=== PATIENT | female | born 1960 | race Caucasian/White ===

== ENCOUNTER 2023-01-07 17:43 | Observation (INO) | payer SELFPAY ==
[2023-01-07] MEDS ORDERED: Morphine 2 MG/ML SYRINGE IVPUSH ONE (17:45)
[2023-01-07] MEDS ORDERED: Sodium Chloride 0.9% 10 ML Syringe FLUSH PRN (21:16)
[2023-01-07] MEDS ORDERED: Sodium Chloride 0.9% 2.5 ML Syringe FLUSH PRN (21:16)
[2023-01-07 22:33] LABS: BLOOD UREA NITROGEN,BUN 5 mg/dL (7.0-18.0); CARBON DIOXIDE,CO2 31.9 mmol/L (21.0-32.0); CHLORIDE,CL 98 mmol/L (98-107); GLUCOSE RANDOM 117 mg/dL (74-106); POTASSIUM,K 3.6 mmol/L (3.5-5.1); SODIUM,NA 139 mmol/L (136-145)
[2023-01-07 22:34] LABS: ESTIMATED GFR 103 mL/min (>60)
[2023-01-07 22:49] LABS: CORONAVIRUS COVID-19 NAA NEGATIVE (NEGATIVE); INFLUENZA A NAA NEGATIVE (NEGATIVE); INFLUENZA B NAA NEGATIVE (NEGATIVE)
[2023-01-08] MEDS ORDERED: Iopamidol 755 MG/ML 500 ML Multipack Bottle IVPUSH STA (01:04)
[2023-01-08] MEDS: Acetaminophen/HYDROcodone 325-5 MG Tab ONE ×2 (03:10→07:09)
[2023-01-08] MEDS ORDERED: Sodium Chloride 0.9% 10 ML Syringe FLUSH PRN ×2 (06:05→07:52)
[2023-01-08] MEDS ORDERED: Sodium Chloride 0.9% 2.5 ML Syringe FLUSH PRN ×2 (06:05→07:52)
[2023-01-08] MEDS ORDERED: Acetaminophen 325 MG Tab PO PRN (06:06)
[2023-01-08] MEDS ORDERED: Gadobenate Dimeglumine 529 MG/ML 20 ML SDV IVPUSH STA (07:37)
[2023-01-08] MEDS ORDERED: Ondansetron 4 MG/2 ML SDV IVPUSH PRN (07:52)
[2023-01-08] MEDS ORDERED: Glucagon,Human Recombinant 1 MG Vial IM PRN (09:11)
[2023-01-08] MEDS ORDERED: 50% Dextrose in Water 50 ML Syringe IVPUSH PRN (09:11)
[2023-01-08] MEDS ORDERED: traZODone 50 MG Tab PO PRN (09:13)
[2023-01-08] MEDS ORDERED: Dicyclomine 10 MG Cap PO PRN (09:13)
[2023-01-08] MEDS ORDERED: hydrOXYzine Pamoate 25 MG Cap PO PRN (09:13)
[2023-01-08] MEDS ORDERED: Docusate Sodium 100 MG Cap PO PRN (09:13)
[2023-01-08 09:14] LABS: CARBON DIOXIDE,CO2 31.9 mmol/L (21.0-32.0); POTASSIUM,K 2.9 mmol/L (3.5-5.1)
[2023-01-08] MEDS ORDERED: Potassium Chloride 20 MEQ Tab.ER PO ONE (09:44)
[2023-01-08] MEDS ORDERED: Magnesium Sulfate/Water 4 GM in Premix Bag 1 BAG IV ONE (09:45)
[2023-01-08] MEDS ORDERED: Potassium Chloride 20 MEQ in Premix Bag 2 BAG IV ONE (09:45)
[2023-01-08] MEDS: Potassium Chloride 20 MEQ in Premix Bag 1 BAG IV SCH ×2 (10:29→13:16)
[2023-01-08] MEDS ORDERED: Ibuprofen 400 MG Tab PO PRN (10:30)
[2023-01-08] MEDS: Lidocaine 5% 700 MG Patch TRDERM SCH (11:32)
[2023-01-08] MEDS: Gabapentin 300 MG Cap PO SCH ×2 (13:19→22:10)
[2023-01-08] MEDS: Insulin Aspart 100 Units/ML 3 ML Pen SUBCUT SCH ×2 (13:24→17:27)
[2023-01-09] MEDS: Gabapentin 300 MG Cap PO SCH (06:38)
[2023-01-09] MEDS: Insulin Aspart 100 Units/ML 3 ML Pen SUBCUT SCH (07:29)
[2023-01-09] MEDS ORDERED: Omeprazole 20 MG Cap.CR PO SCH (07:30)
[2023-01-09 08:00] LABS: CARBON DIOXIDE,CO2 30.2 mmol/L (21.0-32.0); POTASSIUM,K 3.8 mmol/L (3.5-5.1)
[2023-01-09] MEDS ORDERED: Furosemide 40 MG Tab PO SCH (09:00)
[2023-01-09] MEDS ORDERED: Aspirin 81 MG Tab.EC PO SCH (09:00)
[2023-01-09] MEDS ORDERED: Folic Acid 1 MG Tab PO SCH (09:00)
[2023-01-09] MEDS ORDERED: Sertraline 100 MG Tab PO SCH (09:00)
[2023-01-09] MEDS ORDERED: Hydrocortisone 1% Crm 30 GM Tube TOP ONE (10:13)
[2023-01-09] MEDS: Lidocaine 5% 700 MG Patch TRDERM SCH (10:17)
== END 2023-01-09 11:30 | disposition home or self-care (01) ==
LOC: MW.ED 17:43 → MW.MS 01-08 03:06
PROVIDERS: ADMIT Pediatrics; ATTEND Pediatrics
DX: G93.89 Other specified disorders of brain (principal); S20.212A Contusion of left front wall of thorax, initial encounter; J43.9 Emphysema, unspecified; E11.9 Type 2 diabetes mellitus without complications; K70.30 Alcoholic cirrhosis of liver without ascites; R91.8 Other nonspecific abnormal finding of lung field; Z85.118 Personal history of other malignant neoplasm of bronchus and lung; Z90.2 Acquired absence of lung [part of]; Z86.19 Personal history of other infectious and parasitic diseases; Z79.899 Other long term (current) drug therapy; Z79.84 Long term (current) use of oral hypoglycemic drugs; Z98.890 Other specified postprocedural states; Z20.822 Contact with and (suspected) exposure to COVID-19; Z98.1 Arthrodesis status; W19.XXXA Unspecified fall, initial encounter
CPT/HCPCS: 0240U; 36415; 70450; 70450-26; 70460; 70460-26; 70553; 70553-26; 71250; 71250-26; 72125; 72125-26; 80048; 80053; 80305-QW; 80307; 81003; 82947; 83735; 84100; 85025; 85610; 85652; 86140; 96374; 97161-GP; 99222; 99238; 99284; 99285-25; A9270-GY; A9577; J1815-GY; J2270; J3475; J3480; Q9967

== ENCOUNTER 2023-01-22 11:27 | Emergency (ER) | payer SELFPAY ==
[2023-01-22] MEDS ORDERED: Sodium Chloride 0.9% 10 ML Syringe FLUSH PRN (11:29)
[2023-01-22] MEDS ORDERED: Sodium Chloride 0.9% 2.5 ML Syringe FLUSH PRN (11:29)
[2023-01-22] MEDS ORDERED: Sodium Chloride 0.9% 1,000 ML IV ONE (11:30)
[2023-01-22] MEDS ORDERED: Dexamethasone 4 MG/ML SDV IVPUSH ONE (11:55)
[2023-01-22 12:27] LABS: CARBON DIOXIDE,CO2 20.7 mmol/L (21.0-32.0); POTASSIUM,K 3.5 mmol/L (3.5-5.1)
[2023-01-22] MEDS ORDERED: Acetaminophen/HYDROcodone 325-5 MG Tab PO STA (13:06)
== END 2023-01-22 15:41 | disposition home or self-care (01) ==
LOC: MW.ED 11:27
DX: R56.9 Unspecified convulsions (principal); G93.89 Other specified disorders of brain; Z79.82 Long term (current) use of aspirin; Z79.899 Other long term (current) drug therapy; Z85.118 Personal history of other malignant neoplasm of bronchus and lung
CPT/HCPCS: 36415; 71045; 80053; 81001; 83605; 85025; 87086; 93005; 96361; 96365; 96375; 99285; A9270; J1100; J1953; J3490; J7030; J7060; 93010; 99284

== ENCOUNTER 2023-03-30 09:39 | Emergency (ER) | payer MEDICAID ==
[2023-03-30] MEDS ORDERED: Albuterol/Ipratropium 3.0-0.5 MG/3 ML Neb Soln NEB ONE (09:56)
[2023-03-30] MEDS ORDERED: Sodium Chloride 0.9% 1,000 ML IV ONE ×3 (09:56→13:48)
[2023-03-30] MEDS ORDERED: Sodium Chloride 0.9% 10 ML Syringe FLUSH PRN (09:56)
[2023-03-30] MEDS ORDERED: Sodium Chloride 0.9% 2.5 ML Syringe FLUSH PRN (09:56)
[2023-03-30] MEDS ORDERED: methylPREDNISolone Sodium Succinate 125 MG/2 ML SDV IVPUSH ONE (09:56)
[2023-03-30] MEDS ORDERED: Ondansetron 4 MG/2 ML SDV IVPUSH ONE (09:56)
[2023-03-30] MEDS ORDERED: Piperacillin/Tazobactam 4.5 GM in Sodium Chloride 0.9% 100 ML IV ONE (09:56)
[2023-03-30] MEDS ORDERED: Albuterol/Ipratropium 3.0-0.5 MG/3 ML Neb Soln ONE (09:59)
[2023-03-30] MEDS ORDERED: Acetaminophen 325 MG Supp RECTAL STA (10:00)
[2023-03-30] MEDS ORDERED: Ketorolac 30 MG/ML SDV IVPUSH ONE (10:01)
[2023-03-30] MEDS ORDERED: Acetaminophen 325 MG Supp ONE (10:01)
[2023-03-30 10:14] LABS: PH,VENOUS 7.41 (7.31-7.41)
[2023-03-30] MEDS ORDERED: LORazepam 2 MG/ML SDV IVPUSH ONE (10:14)
[2023-03-30 10:16] LABS: BASOPHILS PERCENT AUTO 0.3 % (0.0-1.5); EOSINOPHILS PERCENT AUTO 0.3 % (0.0-7.0); HEMATOCRIT 48.9 % (36.0-46.0); HEMOGLOBIN 16.5 g/dL (12.0-16.0); LYMPHOCYTES ABSOLUTE AUTO 0.6 K/uL (0.6-2.4); LYMPHOCYTES PERCENT AUTO 15.9 % (16.0-40.0); MEAN CORPUSCULAR HEMOGLOBIN 28.5 pg (27.0-32.0); MEAN CORPUSCULAR HGB CONC 33.7 g/dL (31.0-37.0); MEAN CORPUSCULAR VOLUME 84.6 fL (80.0-98.0); MONOCYTES ABSOLUTE AUTO 0.2 K/uL (0.0-0.8); MONOCYTES PERCENT AUTO 3.8 % (0.0-15.0); NEUTROPHILS ABSOLUTE AUTO 3.1 K/uL (1.4-5.7); NEUTROPHILS PERCENT AUTO 79.7 % (48.0-80.0); NRBC ABSOLUTE 0 K/uL; PLATELET COUNT,PLT 125 K/uL (150-400); RED BLOOD CELL COUNT 5.78 M/uL (4.30-5.90); WHITE BLOOD CELL COUNT,WBC 3.91 K/uL (4.0-11.0)
[2023-03-30] MEDS ORDERED: Sodium Chloride 0.9% 500 ML IV ONE (10:22)
[2023-03-30 10:42] LABS: A/G RATIO 0.8 (0.9-1.6); ALBUMIN 2.6 g/dL (3.4-5.0); BILIRUBIN TOTAL 1.8 mg/dL (0.2-1.0); CALCIUM 7.4 mg/dL (8.5-10.1); CARBON DIOXIDE,CO2 18.5 mmol/L (21.0-32.0); CREATININE 1.2 mg/dL (0.6-1.0); EST CRCL DRUG DOSING (CG) 39.43 mL/min; MAGNESIUM 1.3 mg/dL (1.8-2.4); POTASSIUM,K 3.2 mmol/L (3.5-5.1); PROTEIN TOTAL,TP 5.8 g/dL (6.4-8.2)
[2023-03-30 10:45] LABS: LACTIC ACID 5.7 mmol/L (0.4-2.0)
[2023-03-30 10:57] LABS: APPEARANCE,URINE CLEAR; BILIRUBIN,URINE NEGATIVE (NEGATIVE); COLOR,URINE YELLOW; GLUCOSE,URINE 250 mg/dL (NEGATIVE); KETONES,URINE NEGATIVE (NEGATIVE); LEUKOCYTE ESTERASE,URINE NEGATIVE (NEGATIVE); NITRITE,URINE NEGATIVE (NEGATIVE); OCCULT BLOOD,URINE TRACE-INTACT (NEGATIVE); PROTEIN,URINE TRACE mg/dL (NEGATIVE)
[2023-03-30 11:11] LABS: BASE EXCESS ARTERIAL -6.1 (-2.0-3.0); BICARBONATE,ARTERIAL 19 mEq/L (22-26); PCO2 ARTERIAL 34 mmHG (35-45); PO2 ARTERIAL 96 mmHG (80-105)
[2023-03-30 11:16] LABS: CORONAVIRUS COVID-19 NAA NEGATIVE (NEGATIVE); INFLUENZA A NAA NEGATIVE (NEGATIVE); INFLUENZA B NAA NEGATIVE (NEGATIVE); RESPIRATORY SYNCYTIAL VIR NAA NEGATIVE (NEGATIVE)
[2023-03-30 11:21] LABS: BACTERIA,URINE FEW (NEGATIVE); EPITHELIAL CELLS,URINE MODERATE (NONE-FEW); MUCUS,URINE LIGHT (NONE-MOD); WBC,URINE 0-2 (0-5/HPF)
[2023-03-30] MEDS ORDERED: Rocuronium 50 MG/5 ML Vial IV ONE (13:47)
[2023-03-30] MEDS ORDERED: fentaNYL/Normal Saline 2,500 MCG in Premix Bag 1 BAG IV PRN (13:48)
[2023-03-30] MEDS ORDERED: Etomidate 2 MG/ML 20 ML SDV IVPUSH ONE (13:48)
[2023-03-30] MEDS ORDERED: Azithromycin 500 MG in Sodium Chloride 0.9% 250 ML IV ONE (14:03)
[2023-03-30] MEDS ORDERED: propofoL 100 ML IV SCH (14:15)
[2023-03-30] MEDS ORDERED: Norepinephrine Bit/D5W Premix 250 ML ONE (14:26)
[2023-03-30] MEDS ORDERED: Norepinephrine Bit/D5W Premix 250 ML IV SCH (14:30)
[2023-03-30] MEDS ORDERED: Vasopressin 100 UNITS in Dextrose 5% in Water 245 ML IV SCH ×2 (15:00)
[2023-03-30] MEDS ORDERED: Naloxone 0.4 MG/ML SDV ONE ×2 (15:00→16:00)
[2023-03-30] MEDS ORDERED: EPINEPHrine 1:10,000 1 MG/10 ML Syringe ONE (16:00)
[2023-03-30] MEDS ORDERED: EPINEPHrine 1 MG/1 ML Amp IVPUSH ONE (16:02)
[2023-03-30] MEDS ORDERED: Naloxone 0.4 MG/ML SDV IVPUSH ONE (16:02)
== END 2023-03-30 15:30 ==
LOC: MW.ED 09:39
DX: A41.9 Sepsis, unspecified organism (principal); J18.9 Pneumonia, unspecified organism; R65.20 Severe sepsis without septic shock; J96.01 Acute respiratory failure with hypoxia; J81.1 Chronic pulmonary edema; Z20.822 Contact with and (suspected) exposure to COVID-19; Z79.82 Long term (current) use of aspirin; Z79.899 Other long term (current) drug therapy
CPT/HCPCS: 0241U; 31500; 36415; 36600; 51702; 71045; 80053; 81001; 82803; 83605; 83735; 84484; 85025; 87040; 87077; 87154; 87186; 93005; 94660; 96361; 96365; 96366; 96367; 96368; 96375; 99285; A9270; J0171; J0456; J1885; J2060; J2310; J2405; J2543; J2704; J2930; J3490; J7030; J7050; J7620-GY